=== PATIENT | female | born 1950 | race Caucasian/White ===

== ENCOUNTER 2016-10-31 08:27 | Day surgery (SDC) | payer MEDICARE ==
[2016-10-31] VITALS (7 sets, daily range): BP systolic 96–127; BP diastolic 55–72; PULSE 62–85; RESP 12–16; O2SAT 87–99
[~2016-10-31] VITALS: Ht 152.4 cm; Wt 62.1 kg
[~2016-10-31 08:27] MED LIST: ALPR0.25 PO; CALC600T12 PO; CHOL100094 PO; CRAN450T9 PO; LUTE20CA8 PO; MAGN200T PO; SERT50TA PO; Sodium Chloride LOK Flush 10 mL Syringe IV PRN; fentaNYL-PF 50 mCg/mL 2 mL Inj IVPUSH PRN
[2016-10-31] MEDS ORDERED: BIOT5000 PO (09:02)
[2016-10-31] MEDS ORDERED: TURM500C7 PO (09:02)
[2016-10-31] MEDS ORDERED: CINN500C14 PO (09:02)
[2016-10-31] MEDS ORDERED: KRIL1CAP19 PO (09:02)
[2016-10-31] MEDS: 0.9% Sodium Chloride 1,000 ML IV SCH ×2 (09:13→09:32)
[2016-10-31] MEDS ORDERED: Ondansetron 2 mg/mL 2 mL Inj ONE (09:20)
--- NOTE | 2016-10-31 16:23 | ENDO ---
[address] [address] ENDOSCOPY PROCEDURE PATIENT: NERI KILLIAN : 1950 MR#: [id number] ADMIT: 10/31/2016 JOB ID: [id number] DATE: 10/31/2016 TYPE OF OPERATION: Colonoscopy. PREOPERATIVE DIAGNOSIS(ES): Family history of colon cancer in the mother. POSTOPERATIVE DIAGNOSIS(ES): Normal colonoscopy. ANESTHESIA: 1. Fentanyl 100 mcg. 2. Versed 5 mg IV administered. COMPLICATIONS: None. BLOOD LOSS: Minimal. DESCRIPTION OF PROCEDURE: After risks and benefits were explained to the patient, informed consent was obtained. After anesthesia administered, colonoscope was then inserted from the rectum to the cecum. Mucosa carefully examined. Prep of the patient was excellent. After the procedure was done, the scope withdrawn and the procedure terminated. FINDINGS: Upon inspection of the anus, no masses, hemorrhoids, ulcers, or fissures that were seen. Throughout the entire examination, there were no polyps, masses or lesions. Retroflexion was normal. IMPRESSION: Normal colonoscopy. RECOMMENDATIONS: Repeat colonoscopy in five years given family history of colon cancer in the mother. Follow up in GI clinic as needed.
== END 2016-10-31 23:59 | disposition home or self-care (01) ==
LOC: END 08:27
PROVIDERS: ATTEND Internal Medicine Gastroenterology
PROC: 0DJD8ZZ Inspection of Lower Intestinal Tract, Via Natural or Artificial Opening Endoscopic (ICD-10-PCS; principal; 2016-10-31 09:15)
DX: Z12.11 Encounter for screening for malignant neoplasm of colon (principal); Z80.0 Family history of malignant neoplasm of digestive organs